=== PATIENT | male | born 1940 | race Caucasian/White ===

== ENCOUNTER → 2016-06-11 | Outpatient (CLI) | payer OTHER ==
--- NOTE | 2016-06-11 19:49 | MR ---
MRI of the Lumbar Spine (Without Contrast) Clinical Indications: Right lower extremity weakness. Technique: Sagittal and axial T1 and T2 MR sequences of the lumbar spine without contrast. Findings: T12-L1: Broad-based annular bulging contributes to moderate acquired central canal stenosis. L1-L2: Broad-based annular bulging ventrally contributes to severe acquired central canal stenosis at this level. There is marked crowding of the cauda equina and thecal space. Focal epidural fat hypert rophy is present posteriorly. Neural foramina are moderately narrowed bilaterally. L2-L3: Broad-based annular bulging ventrally contributes to severe acquired central canal stenosis. T here is ligamentum flavum and facet degenerative hypertrophy posteriorly. Tethering of the cauda equi na within the thecal space is identified. The foramina are mildly narrowed bilaterally. L3-L4: Broad-based annular bulging centrally contributes to severe acquired central canal stenosis, w ith marked crowding of the cauda equina. The neural foramina are moderately stenotic bilaterally, lef t greater the right. L4-L5: Disk desiccation and broad-based annular bulging, with moderate acquired central canal stenosi s at this level. Neural foramina appear moderately narrowed bilaterally, left greater than right, sec ondary to annular bulging. L5-S1: Bilateral spondylolysis with 8 mm anterolisthesis of L5 upon S1. The central canal is decompre ssed. However, the neural foramina appear severely stenotic bilaterally, right greater than left, sec ondary to spondylolisthesis and annular bulging. The patient has a right L5 radiculopathy, this would explain this clinical abnormality. Impression: 1. 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 2. Severe acquired central canal stenosis at L1-L2, L2-L3, and L3-L4. There is moderate acquired cent ral canal stenosis at T12-L1 and L4-L5. Tethering and crowding of the cauda equina in the thecal spac e is present from L1-L2 through L3-L4.
== END ==
LOC: FIMAGING 16:04
PROVIDERS: ATTEND Psychiatry & Neurology Neurology
DX: M43.06 Spondylolysis, lumbar region (principal); M43.17 Spondylolisthesis, lumbosacral region; M48.06 Spinal stenosis, lumbar region; M48.07 Spinal stenosis, lumbosacral region; G95.89 Other specified diseases of spinal cord

== ENCOUNTER → 2016-07-14 | Outpatient (CLI) | payer OTHER | LOC: BMCIMAGING 07:55 | PROVIDERS: ATTEND Neurological Surgery | DX: M51.36 Other intervertebral disc degeneration, lumbar region (principal); M43.16 Spondylolisthesis, lumbar region ==

== ENCOUNTER → 2017-02-08 | Outpatient (CLI) | payer OTHER | LOC: FIMAGING 10:41 | PROVIDERS: ATTEND Internal Medicine Critical Care Medicine | DX: R91.8 Other nonspecific abnormal finding of lung field (principal); J44.9 Chronic obstructive pulmonary disease, unspecified; D35.01 Benign neoplasm of right adrenal gland; D35.02 Benign neoplasm of left adrenal gland; I25.10 Atherosclerotic heart disease of native coronary artery without angina pectoris ==

== ENCOUNTER 2017-10-09 05:35 | Emergency (ER) | payer OTHER ==
--- NOTE | 2017-10-09 05:49 | EDPHY ---
H & P Stated Complaint: Fall, L side rib pain Time Seen by Provider: 10/09/17 05:58 HPI/ROS: HPI CHIEF COMPLAINT: Left lateral rib pain status post mechanical trip and fall. HISTORY OF PRESENT ILLNESS: Patient is a very pleasant 77-year-old male, presents emergency room with left lateral rib pain. Patient states that 3 o' clock yesterday he tripped over a shoe in the laundry room any landed on the edge of the wash Tylenol on left lateral ribs. He now has left lateral rib pain. Worse when he takes deep breath in. Also distally worse when you press on his left lateral ribs. Denies any hemoptysis. Denies shortness of breath, denies significant pleuritic pain. Pain is worse when you press on the left lateral ribs over the axilla region or high ribs. No flail chest. No crepitus on exam. No ecchymosis. Patient is not on any anticoagulation. He denies any other areas of trauma. Decided come the emergency room due to ongoing pain. Past Medical History: Hypertension Past Surgical History: Prostatectomy, hernia repair, eye surgery Social History: Occasional alcohol use. Denies tobacco or drugs. Family History: Noncontributory ROS REVIEW OF SYSTEMS: A comprehensive 10 point review of systems is otherwise negative aside from elements mentioned in the history of present illness. Exam Constitutional appears well nontoxic no acute distress triage nursing summary reviewed, vital signs reviewed, awake/alert. Eyes normal conjunctivae and sclera, EOMI, PERRLA. HENT normal inspection, atraumatic, moist mucus membranes, no epistaxis, neck supple/ no meningismus, no raccoon eyes. Respiratory clear to auscultation bilaterally, normal breath sounds, no respiratory distress, no wheezing. Cardiovascular chest wall: Mild tenderness palpation over the left lateral upper chest wall. No crepitus. No flail chest. No ecchymosis. No subcutaneous emphysema on exam, rate normal, regular rhythm, no murmur, no edema , distal pulses normal. Gastrointestinal soft, non-tender, no rebound, no guarding, normal bowel sounds, no distension, no pulsatile mass. Genitourinary no CVA tenderness. Musculoskeletal no midline vertebral tenderness, full range of motion, no calf swelling, no tenderness of extremities, no meningismus, good pulses, neurovascularly intact. Skin pink, warm, & dry, no rash, skin atraumatic. Neurologic awake, alert and oriented x 3, AAOx3, moves all 4 extremities equally, motor intact, sensory intact, CN II-XII intact, normal cerebellar, normal vision, normal speech. Psychiatric normal mood/affect. Heme/Lymph/Immune no lymphadenopathy. Differential Diagnosis: Includes but is not limited to in a particular order rib contusions, rib bruising, rib fracture, musculoskeletal strain, pneumothorax , pulmonary contusion Medical Decision Making: Plan for this patient [place] for pain control. Chest x -ray with rib series. Re-evaluate. Incentive spirometer. Re-evaluation: ED x-ray chest with rib series shows no evidence of pneumothorax or significant rib fractures. Image interpreted by myself. Clinical exam is possible is patient has rib fractures however not evident on the x-ray. Will placed on [place] for pain control. Additionally incentive spirometer. I do not see a pneumothorax on his chest x-ray. Recommend he ice his chest, anti-inflammatory pain medicine for mild pain, [place] for severe pain. Incentive spirometer. Return precautions discussed the me understands return emergency room if develops worsening chest wall pain, shortness of breath or questions or concerns. Source: Patient - Personal History Current Tetanus Diphtheria and Acellular Pertussis (TDAP): Yes - Medical/Surgical History Hx Asthma: No Hx Chronic Respiratory Disease: Yes Hx Diabetes: No Hx Cardiac Disease: No Hx Renal Disease: No Hx Cirrhosis: No Hx Alcoholism: No Hx HIV/AIDS: No Hx Splenectomy or Spleen Trauma: No Other PMH: COPD - Social History Smoking Status: Former smoker Constitutional: Initial Vital Signs Temperature (C) 36.4 C 10/09/17 05:41 Heart Rate 87 10/09/17 05:41 Respiratory Rate 18 10/09/17 05:41 Blood Pressure 130/85 H 10/09/17 05:41 O2 Sat (%) 94 10/09/17 05:41 O2 Delivery Mode Room Air Allergies/Adverse Reactions: No Allergies [NKDA] Allergy (Verified 10/09/17 05:40) Home Medications: Medication Instructions Recorded Advil 10/16/15 Aspirin 81mg (OTC) 10/16/15 CALCIUM 10/16/15 Losartan Potassium 10/16/15 Multivitamin 10/16/15 Hydrocodone/APAP 5/325 [[place] 1 - 2 tab PO Q4H PRN #10 tab 10/09/17 5/325] Medical Decision Making - Data Points Medications Given: Discontinued Medications Hydrocodone Bitart/Acetaminophen ([place] 5/325mg Prepack#6) 1 btl TAKEHOME EDNOW ONE Stop: 10/09/17 05:59 Last Admin: 10/09/17 06:04 Dose: 1 btl Hydrocodone Bitart/Acetaminophen ([place] 5/325) 1 tab PO EDNOW ONE Stop: 10/09/17 05:59 Last Admin: 10/09/17 06:04 Dose: 1 tab Departure - Departure Disposition: Home, Routine, Self-Care Clinical Impression: Rib fractures Qualifiers: Encounter type: initial encounter Rib fracture type: single rib Fracture type: closed Laterality: left Qualified Code(s): S22.32XA - Fracture of one rib, left side, initial encounter for closed fracture Condition: Good Instructions: Hydrocodone/Acetaminophen (By mouth), Rib Fracture (ED) Additional Instructions: 1. Use your incentive spirometer as prescribed. 2. [place] few having severe pain. 3. Recommend Tylenol or Motrin for mild pain. 4. Return emergency room if you have worsening chest pain, shortness of breath, fever, vomiting. Referrals: Nallely Celestin PA [Primary Care Provider] - As per Instructions Prescriptions: Hydrocodone/APAP 5/325 [[place] 5/325] 1 - 2 tab PO Q4H PRN #10 tab PRN Reason: Pain, Moderate
[2017-10-09] MEDS ORDERED: HYDROCOD/APAP 5/325 PREPACK#6 BTL TAKEHOME ONE (05:58)
[2017-10-09] MEDS ORDERED: HYDROCODONE/APAP 5/325 TAB PO ONE (05:58)
[2017-10-09 06:52] VITALS: BP 124/79
== END 2017-10-09 06:56 | disposition home or self-care (01) ==
DX: S22.32XA Fracture of one rib, left side, initial encounter for closed fracture (principal); J44.9 Chronic obstructive pulmonary disease, unspecified; I10 Essential (primary) hypertension; Z87.891 Personal history of nicotine dependence; Z79.82 Long term (current) use of aspirin; W01.0XXA Fall on same level from slipping, tripping and stumbling without subsequent striking against object, initial encounter; Y92.89 Other specified places as the place of occurrence of the external cause

== ENCOUNTER → 2017-10-18 | Outpatient (CLI) | payer OTHER | LOC: FIMAGING 14:01 | PROVIDERS: ATTEND Physician Assistant | DX: Z13.820 Encounter for screening for osteoporosis (principal); M85.89 Other specified disorders of bone density and structure, multiple sites; Z82.62 Family history of osteoporosis ==

== ENCOUNTER → 2018-01-27 | Outpatient (CLI) | payer OTHER | LOC: FIMAGING 17:25 | PROVIDERS: ATTEND Family Medicine | DX: J44.9 Chronic obstructive pulmonary disease, unspecified (principal) ==

== ENCOUNTER → 2018-06-05 | Day surgery (SDC) | payer OTHER ==
[~2018-06-05] MED LIST: IOPAMIDOL (ISOVUE-M 300) 15 ML VIAL ONE; LIDOCAINE 1% 300 MG/30 ML SDV ONE; TRIAMCINOLONE ACETONIDE 200 MG/5 ML MDV IM ONE
== END | disposition home or self-care (01) ==
LOC: FIMAGING 12:38
PROVIDERS: ATTEND Physical Medicine & Rehabilitation
DX: M54.16 Radiculopathy, lumbar region (principal)
CPT/HCPCS: J3301; Q9967

== ENCOUNTER → 2018-06-12 | Outpatient (CLI) | payer OTHER | LOC: BMCIMAGING 08:41 | PROVIDERS: ATTEND Physician Assistant | DX: R05 Cough (principal); J44.9 Chronic obstructive pulmonary disease, unspecified ==